=== PATIENT | female | born 1980 | race Caucasian/White ===

== ENCOUNTER 2018-07-19 06:20 | Day surgery (SDC) | payer BC ==
[2018-07-16 09:41] LABS: HEMATOCRIT 43.2 % (36.0-48.0); HEMOGLOBIN 14.9 g/dL (12-16); MCHC 34.5 g/dL (31.0-37.0); MCV 95.6 fL (80.0-100.0); MEAN PLATELET VOLUME 10.3 fL (7.4-10.4); RBC 4.52 10x6/uL (4.00-5.40); RDW 12.3 % (11.5-14.5); WBC 8.1 10x3/uL (4.8-10.8)
[2018-07-16 09:44] LABS: HCG URINE NEGATIVE (NEGATIVE)
[~2018-07-19] VITALS: Ht 170.2 cm; Wt 97.1 kg
[2018-07-19 06:46] VITALS: BP 116/74; Ht 170.2 cm; Wt 97.1 kg
[2018-07-19] MEDS ORDERED: HYDROCODON-ACE1 EAC7 PO (08:49)
== END 2018-07-19 11:10 | disposition home or self-care (01) ==
LOC: D.OPS 06:20 → D.PAN 08:00 → D.OPS 08:00
PROVIDERS: Anesthesiology
DX: K80.10 Calculus of gallbladder with chronic cholecystitis without obstruction (principal); F17.200 Nicotine dependence, unspecified, uncomplicated; Z01.812 Encounter for preprocedural laboratory examination

== ENCOUNTER 2020-03-07 22:18 | Inpatient (IN) | payer SELFPAY ==
[~2020-03-07] VITALS: Ht 170.2 cm; Wt 104.5 kg
[~2020-03-07 22:18] MED LIST: HYDROCODON-ACE1 EAC7 PO
[2020-03-07 23:49] LABS: HEMATOCRIT 42.7 % (36.0-48.0); HEMOGLOBIN 14.5 g/dL (12-16); LYMPHOCYTES 28.3 % (15-50); MCH 32.5 pg (26.0-34.0); MCV 95.7 fL (80.0-100.0); MEAN PLATELET VOLUME 9.4 fL (7.4-10.4); NEUTROPHILS 63.2 % (40-80); PLATELET COUNT 275 10x3/uL (130-400); RBC 4.46 10x6/uL (4.00-5.40); WBC 10.5 10x3/uL (4.8-10.8)
[2020-03-07 23:57] LABS: BILIRUBIN NEGATIVE (NEGATIVE); GLUCOSE NEGATIVE (NEGATIVE); KETONE NEGATIVE (NEGATIVE); NITRITE NEGATIVE (NEGATIVE); UROBILINOGEN NORMAL (NORMAL)
[2020-03-08 00:08] LABS: ANION GAP 8.7 mmol/L (8-16); CALCIUM 8.9 mg/dL (8.5-10.1); CARBON DIOXIDE 28.2 mmol/L (21.0-32.0); CREATININE - SERUM 0.9 mg/dL (0.6-1.3); POTASSIUM - SERUM 3.9 mmol/L (3.5-5.1)
[2020-03-08 00:12] LABS: ALBUMIN 3.5 g/dL (3.4-5.0); BILIRUBIN - TOTAL 0.23 mg/dL (0.2-1.3); PROTEIN - SERUM 6.9 g/dL (6.4-8.2)
[2020-03-08 00:22] LABS: HCG SERUM NEGATIVE (NEGATIVE)
[2020-03-08 06:09] VITALS: BP 100/66
--- NOTE | 2020-03-08 06:30 | NUR ---
PATIENT RECEIVED FROM ER VIA WHEELCHAIR. ALERT AND ORIENTED X3. ASSISTED PATIENT OUT OF CLOTHES AND INTO HOSPITAL GOWN. NORMAL SALINE INFUSING TO RIGHT AC PIV. PIV PATENT WITHOUT S/S OF INFILTRATION. PATIENT DENIES ANY MAJOR PAST MEDICAL HISTORY. VS OBTAINED AND STABLE. ASSESSMENT COMPLETE, SEE FLOWSHEET. LAST FOOD OR DRINK INTAKE 03/07 8PM PER PATIENT. PATIENT DENIES PAIN AT THIS TIME. EDUCATED PATIENT ON ROOM SURROUNDINGS, CALL LIGHT, AND BED CONTROLS AND TO CALL FOR ANY NEEDS. PATIENT STATED UNDERSTANDING. PATIENT STATED SHE WAS NERVOUS AND REQUESTED PREMEDICATION BEFORE AND PROCEDURES. ALL OTHER NEEDS DENIED AT THIS TIME.
[2020-03-08 06:32] VITALS: BP 118/83; Ht 170.2 cm; Wt 104.5 kg
--- NOTE | 2020-03-08 07:15 | NUR ---
MORPHINE MAKE UP WORKER STARTED, PT RATES PAIN AT 8/10 AND SHOWS TO BE ON HER RIGHT LOWER QUAD THAT GOES TO HER BACK. STATES THAT PAIN COMES AND GOES AND IS WORSE THAN PERIOD CRAMPS. ABDOMEN SOFT TO TOUCH AND SHE DENIES PAIN WITH TOUCH, NO PAIN OR BURNING WITH VOIDS. IV TO RIGHT AC INFUSING PER ORDERS. ASSESSMENT COMPLETED CHARTED TO FLOWSHEET. LIGHTS TURNED OUT REQUESTED, SIDE RAILS UP X 2 WITH CALL LIGHT IN REACH.
--- NOTE | 2020-03-08 07:42 | NUR ---
DR HOOPER AT BEDSIDE.
--- NOTE | 2020-03-08 07:45 | NUR ---
VERBAL REQUEST FROM DR HOOPER TO HAVE PT SIGN CONSENTS FOR LAPAROSCOPY, CYSTECTOMY WITH POSSIBLE OOPHORECTOMY.
--- NOTE | 2020-03-08 07:55 | NUR ---
CONSENTS SIGNED AND WITNESSED. PT CONTINUE TO RATE HER PAIN AT 8/10, ENCOURAGED HER TO USE ULTRASONOGRAPHER WHEN POSSIBLE. NO QUESTIONS OR CONCERNS AT THIS TIME. CALL LIGHT IN REACH.
[2020-03-08 09:00] VITALS: BP 133/89
--- NOTE | 2020-03-08 09:09 | NUR ---
PREOP MEDS GIVEN SCANNED TO EMAR. SURGERY CHECKLIST ALSO COMPLETED AT THIS TIME. PT RATES HER PAIN AT 3/10, SHE DENIES ANY QUESTIONS. CALL LIGHT IN REACH.
--- NOTE | 2020-03-08 09:15 | NUR ---
PT OFF UNIT BY BED WITH SURGERY FOUNTAIN PEN NIBS INSPECTOR.
[2020-03-08 12:06] VITALS: BP 108/57
--- NOTE | 2020-03-08 12:24 | NUR ---
RECEIVED FROM RECOVERY BY BED, PT IS DROWSY BUT AWAKENS EASILY. RATES PAIN AT 7/10, PERCOCET GIVEN ORDERED, SEE EMAR. VSS. IV TO RIGHT AC INFUSING PER ORDERS. ABDOMEN SOFT TO TOUCH AND ICE PACK PROVIDED FOR COMFORT. SPOUSE AT BEDSIDE, CALL LIGHT IN REACH WITH SIDE RAILS UP X 2.
--- NOTE | 2020-03-08 12:36 | NUR ---
LARGE ICE WATER PER REQUEST. REASSURED PT THAT WAS OK FOR HER TO RAISE HEAD OF BED, AND THAT SHE COULD POSITION SELF FOR HER COMFORT. UNDERSTANDS TO CALL FOR NURSE WHEN SHE FEELS THE NEED TO VOID.
--- NOTE | 2020-03-08 13:15 | NUR ---
JELLO AND LARGE ICE WATER REQUESTED.
--- NOTE | 2020-03-08 14:00 | NUR ---
CALLED TO ROOM, PT IS SITTING UP ON SIDE OF BED, STATES SHE NEEDS TO VOID. IV SALINE LOCKED, SHE IS ABLE TO GET UP AND AMB BY HERSELF, VOIDS 300ML WITHOUT COMPLAINT. RATES PAIN AT 2/10, BACK TO BED AND POSITIONS SELF FOR COMFORT. NO OTHER NEEDS AT THIS TIME. CALL LIGHT IN REACH.
--- NOTE | 2020-03-08 14:30 | NUR ---
PT ASKING ABOUT CONTINUE PLAN OF CARE, IF SHE IS GOING TO BE DISCHARGED HER SPOUSE WILL STAY. DR HOOPER CALLED AND REPORT GIVEN, PER MD HE WILL BE OVER AFTER CLINIC TO TALK WITH HER BUT SHE CAN PLAN ON BEING ABLE TO GO HOME TONIGHT.
--- NOTE | 2020-03-08 15:40 | NUR ---
DR HOOPER ON UNIT AND AT PT BEDSIDE, WRITTEN SCRIPTS FOR PERCOCET 7.5/325MG AND MOTRIN 800MG.
--- NOTE | 2020-03-08 16:00 | NUR ---
PT UP TO BATHROOM PER SELF, NOTIFIED NURSE WHEN SHE WAS FINISHED. 250ML CLEAR URINE TO COLLECTION HAT. CONTINUE TO DENY NAUSEA AND HAS ASK HER SPOUSE TO GO GET HER SOMETHING TO EAT.
[2020-03-08] MEDS ORDERED: PERCOCET 7.5/321 TAB PO (16:36)
[2020-03-08] MEDS ORDERED: IBUPROFEN800 MG PO (16:38)
--- NOTE | 2020-03-08 16:45 | NUR ---
PT CALLS OUT THAT SHE IS READY FOR DISCHARGE TEACHING. THIS RN TO BEDSIDE, IT IS NOTED THAT PT IS DRESSED AND SITTING UP ON SIDE OF THE BED, RATES PAIN AT 2/10. VERBAL AND WRITTEN DISCHARGE INSTRUCTIONS GONE OVER, SHE IS GIVEN WRITTEN SCRIPTS FOR PERCOCET 7.5/325MG AND MOTRIN 800MG WITH PRINTED INSTRUCTIONS ABOUT EACH. GIVEN WORK EXCUSE REQUESTED TO RETURN TO WORK ON Thursday03-12-20. STATES UNDERSTANDING THAT DR HOOPER WOULD LIKE TO SEE HER AT CLINIC IN 2WEEKS, SEVERAL ATTEMPTS HAVE BEEN MADE TO SCHEDULE THIS APPOINTMENT FOR HER BUT HAVE NOT BEEN ABLE TO GET AN ANSWER WHEN CLINIC CALLED. PT AGREES TO MAKE HER APPOINTMENT IN THE AM. DENIES QUESTIONS OR CONCERNS.
--- NOTE | 2020-03-08 17:05 | NUR ---
TAKEN OUT BY WHEELCHAIR, HOME WITH SPOUSE.
--- NOTE | 2020-03-09 19:44 | MORECARE ---
CASE MANAGEMENT DISCHARGE SUMMARY PATIENT: JOHN BERGERON UNIT: [id number] ADM DATE: 03/08/20 AGE: 40 : 82 SEX: F ROOM/BED: D.1220 AUTHOR: DIAMOND GUALLPA PHYSICIAN: REFERRING PHYSICIAN: JAY HOOPER MD DATE OF SERVICE: 03/09/20 Discharge Plan Patient Name: JOHN BERGERON Facility: [facility]:[place] : 1980 Planned Disposition: Anticipated Discharge Date: Discharge Date: 03/08/2020 Expected LOS: Initial Reviewer: [id number] Initial Review Date: 03/08/2020 Generated: 03/09/20 8:43 pm Patient Name: JOHN BERGERON Page [id number] at 1943 All edits/amendments must be made on the electronic document DICTATION DATE: 03/09/201943 COMMUNITY MARKETING MANAGER: BARAK 03/09/201943 RPT#: [id number] DC DATE:03/08/20 STATUS: DIS IN [facility] [address] [place] [address] END OF REPORT
== END 2020-03-08 17:05 | disposition home or self-care (01) | DRG 743 ==
LOC: D.ER 22:18 → D.WS 03-08 02:57
PROVIDERS: Family Medicine; ADMIT Obstetrics & Gynecology; ATTEND Obstetrics & Gynecology
PROC: 0UB04ZZ Excision of Right Ovary, Percutaneous Endoscopic Approach (ICD-10-PCS; 2020-03-08)
PROC: 0UT54ZZ Resection of Right Fallopian Tube, Percutaneous Endoscopic Approach (ICD-10-PCS; principal; 2020-03-08 10:00)
DX: N83.521 Torsion of right fallopian tube (principal); N70.11 Chronic salpingitis; N83.201 Unspecified ovarian cyst, right side